=== PATIENT | male | born 1960 | race Caucasian/White ===

== ENCOUNTER → 2017-01-07 | Outpatient (REF) | payer BC ==
[2017-01-07 14:40] LABS: BASOPHILS % (AUTO) 1 % (0-2); EOSINOPHILS # (AUTO) 0.1 10^3uL; EOSINOPHILS % (AUTO) 1 % (0-4); LYMPHOCYTES # (AUTO) 2.4 X10^3; MEAN CORPUSCULAR HEMOGLOBIN 29.6 PG (26.0-34.0); MEAN CORPUSCULAR HGB CONC 34.2 g/dL (31.0-37.0); MEAN CORPUSCULAR VOLUME 87 FL (80-100); MONOCYTES # (AUTO) 0.6 X10^3; MONOCYTES % (AUTO) 6 % (3-11); NEUTROPHILS # (AUTO) 6.4 X10^3; NEUTROPHILS % (AUTO) 67 % (51-67); PLATELET COUNT 320 10^3uL (150-450); WHITE BLOOD COUNT 9.61 10^3uL (4.0-11.0)
[2017-01-07 14:54] LABS: BILIRUBIN,URINE Negative (Negative); CLARITY,URINE Clear; COLOR,URINE Yellow; GLUCOSE, URINE (UA) Negative (Negative); LEUKOCYTE ESTERASE, URINE Negative (Negative); PH,URINE 6.5 (5.0 - 8.0); UROBILINOGEN,URINE 0.2 mg/dL (0.2-1.0)
[2017-01-07 15:03] LABS: URINE CENTRIFUGED VOLUME 12 mL
== END ==
LOC: LAB 14:06
PROVIDERS: ATTEND Nurse Practitioner Family
DX: R35.1 Nocturia (principal); R31.29 Other microscopic hematuria
CPT/HCPCS: 81003; 81015; 84153; 85025; 87088

== ENCOUNTER → 2017-01-15 | Outpatient (CLI) | payer BC | LOC: RAD 13:45 | PROVIDERS: ATTEND Nurse Practitioner Family | DX: R31.29 Other microscopic hematuria (principal); N28.89 Other specified disorders of kidney and ureter | CPT/HCPCS: 74178; Q9967 ==

== ENCOUNTER → 2017-01-22 | Outpatient (CLI) | payer BC ==
[~2017-01-22] MED LIST: CHLO500T2 PO; NAPR500T3 PO; POLY10DR OD
--- NOTE | 2017-01-22 08:06 | Diagnostic Imaging Report ---
INDICATION: Bilateral renal masses. Correlation is made to CT scan dated 01/15/2017. FINDINGS: Right and left kidneys measure 11 x 5.6 cm and 11 x 5.3 cm, respectively. There is no evidence of hydronephrosis. There is a hypoechoic nodule measuring 0.9 x 0.8 x 1.1 cm in the lower pole of the right kidney which may contain internal debris or septation. No internal blood flow is identified. There is an anechoic structure measuring 0.7 x 0.6 x 0.5 cm in lower pole of the left kidney. No definite solid mass is identified. There is no perinephric fluid collection. Bladder was not imaged. IMPRESSION: Approximately 1 cm hypoechoic nodule in the lower pole of the right kidney likely represents mildly complicated cyst. There is a subcentimeter cyst also noted in the left kidney. If indicated, short-term ultrasound followup could be performed in 3-4 months to document stability. Dictated by: Dictated on workstation # [id number]
== END ==
LOC: RAD 07:15
PROVIDERS: ATTEND Nurse Practitioner Family
DX: N28.89 Other specified disorders of kidney and ureter (principal)
CPT/HCPCS: 76770